=== PATIENT | female | born 1960 | race Caucasian/White ===

== ENCOUNTER 2023-03-19 09:18 | Outpatient (OUT) | payer MEDICARE, SELFPAY ==
--- NOTE | 2023-03-19 09:45 | XR_ITS ---
[address] [address] Patient Name: SEEMA PENA MRN: [id number] date: 1960 Sex: F Assigned Patient Location: [facility] Current Patient Location: [facility] Accession/Order Number: [id number] Exam Date: 03/19/2023 09:58 Report Date: 03/19/2023 10:30 At the request of: NON-STAFF PHYSICIAN Procedure: XR hip BI w PEL 1V EXAMINATION: XR hip BI w PEL 1V HISTORY: Postlaminectomy syndrome M96.1 ; bilateral hip pain since falling down steps a few months ago, right greater than left COMPARISON: XR hip right 05/26/2021 FINDINGS: RIGHT FINDINGS: BONES: Complete loss of the joint space with [id number]-[id number] articulation and remodeling of the roof of the acetabulum. Large periarticular degenerative osteophytes. SOFT TISSUES: No visible soft tissue swelling. OTHER: Negative. LEFT FINDINGS: BONES: Mild narrowing of the lateral aspect of the superior joint space and small periarticular degenerative osteophytes. SOFT TISSUES: No visible soft tissue swelling. OTHER: Negative. IMPRESSION: RIGHT CONCLUSION: Marked degenerative joint disease of right hip. No fracture. LEFT CONCLUSION: Mild degenerative joint disease of left hip. No fracture. Electronically authenticated by: AMADO MADISON Date: 03/19/2023 10:30
[2023-03-19 10:35] LABS: Thyroid Stimulating Hormone 0.741 uIU/mL (0.358-3.740)
== END 2023-03-19 09:19 ==
LOC: RAD 09:23
PROVIDERS: PCP Physician Assistant
DX: M96.1 Postlaminectomy syndrome, not elsewhere classified (principal); M16.0 Bilateral primary osteoarthritis of hip
CPT/HCPCS: 36415; 73523; 82607; 82746; 83735; 84443

== ENCOUNTER 2023-04-27 14:33 | Outpatient (OUT) | payer MEDICARE, SELFPAY | END 2023-04-27 14:34 | disposition home or self-care (01) | LOC: PST 14:34 | PROVIDERS: PCP Physician Assistant; Visit Provider Surgery | DX: Z01.818 Encounter for other preprocedural examination (principal); Z12.11 Encounter for screening for malignant neoplasm of colon ==

== ENCOUNTER 2023-05-08 09:25 | Day surgery (SDC) | payer MEDICARE, SELFPAY ==
[2023-05-08 09:50] VITALS: BMI 34.2
[2023-05-08] MEDS: LACTATED RINGER'S SOLUTION 1,000 ML 50 ML IV (09:59)
[2023-05-08 10:49] VITALS: BP 109/68; PULSE 87; RESP 16; O2SAT 94
[2023-05-08 11:05] VITALS: BP 112/69; PULSE 83; RESP 16; O2SAT 96
--- NOTE | 2023-05-08 11:09 | PM.GSPRC ---
Indications for Procedure: This patient is a 62-year-old female who presents for screening colonoscopy. The risks benefits options and potential complications of the procedure were discussed in detail with the patient and they agreed to proceed and consent was signed. Pre-op diagnosis: colon cancer screening Post-op diagnosis: other (normal exam) Procedure: colonoscopy Anesthesia: MAC Surgeon: Germain Cason Procedure Summary: The patient was brought to the endoscopy suite and placed in the left lateral decubitus position.? Under MAC the fiberoptic colonoscope was introduced into the rectum. This was gradually advanced through the colon to the cecum. The cecal landmarks were identified. The bowel prep was good. Gradual withdrawal of the colonoscope was then undertaken. No vascular polypoid or mucosal lesions were noted throughout the entire length of the colon. The anal rectal canal was unremarkable. The colon was decompressed. Digital rectal exam was unremarkable. The procedure was ended and the patient was transferred to the recovery area in stable condition. Recommended follow-up colonoscopy in ten years. Estimated blood loss (mL): 0 Specimens: none Complications: No
== END 2023-05-08 11:27 | disposition home or self-care (01) ==
PROVIDERS: PCP Physician Assistant; Visit Provider Surgery
PROC: (CPT G0121; principal; 2023-05-08 10:35)
DX: Z12.11 Encounter for screening for malignant neoplasm of colon (principal); Z79.899 Other long term (current) drug therapy; I10 Essential (primary) hypertension; E78.00 Pure hypercholesterolemia, unspecified; K21.9 Gastro-esophageal reflux disease without esophagitis; E11.9 Type 2 diabetes mellitus without complications; Z85.41 Personal history of malignant neoplasm of cervix uteri; G89.29 Other chronic pain; M54.9 Dorsalgia, unspecified; Z90.710 Acquired absence of both cervix and uterus; F17.210 Nicotine dependence, cigarettes, uncomplicated
CPT/HCPCS: G0121; J2704

== ENCOUNTER 2023-05-29 07:47 | Outpatient (OUT) | payer MEDICARE, SELFPAY ==
[2023-05-29 08:33] LABS: Estimated Average Glucose 148 mg/dL; Glycohemoglobin A1C 6.8 % (4.5-6.2)
[2023-05-29 08:46] LABS: Chol HDL Ratio 3.6; Cholesterol 175 mg/dL (<=200); HDL Cholesterol 49 mg/dL (40-60); LDL Cholesterol Calculated 101.2 mg/dL; Triglycerides 124 mg/dL (<=150); VLDL CHOLESTEROL 24.8 mg/dL
== END 2023-05-29 07:48 | disposition home or self-care (01) ==
LOC: LAB 07:48
PROVIDERS: PCP Physician Assistant; Visit Provider Nurse Practitioner Primary Care
DX: E11.9 Type 2 diabetes mellitus without complications (principal); E78.2 Mixed hyperlipidemia; E78.1 Pure hyperglyceridemia
CPT/HCPCS: 36415; 80061; 83036